=== PATIENT | female | born 1965 | race Two or more races ===

== ENCOUNTER 2024-01-08 10:32 | Emergency (ER) | payer MEDICAID, SELFPAY ==
--- NOTE | ~2024-01-08 | CT_ITS ---
EXAMINATION: CT ABDOMEN AND PELVIS WITHOUT CONTRAST CLINICAL INFORMATION: Right-sided flank pain COMPARISON: None available. TECHNIQUE: Multidetector volumetric imaging was performed from the superior aspect of the liver through the pubic symphysis. Sagittal and coronal reformatted images were obtained on the technologist's workstation. This CT examination was performed using dose optimization techniques as appropriate, variously including the following: *Automated exposure control *Adjustment of mA and/or kV according to patient size (this includes techniques or standardized protocols for targeted exams where dose is matched to indication/reason for exam; i.e. extremities or head) *Use of iterative reconstruction technique DLP: 467 mGy-cm FINDINGS: LUNG BASES: There is mild bronchial thickening and some mild tree-in-bud opacities suggestive of airway disease. No consolidations or effusions or suspicious masses. LIVER, GALLBLADDER, AND BILIARY TREE: The liver is normal in size, shape, and attenuation. No focal hepatic lesion or biliary ductal dilatation is present. The gallbladder is unremarkable with no evidence of radiopaque gallstones, gallbladder wall thickening, or obvious pericholecystic inflammatory changes. PANCREAS: Unremarkable. SPLEEN: Unremarkable. ADRENAL GLANDS: Unremarkable. KIDNEYS AND URETERS: Right: There is right-sided hydronephrosis present with dilatation of ureter down to the level of a 5 mm calculus seen just above the level of the UVJ. Some phleboliths are present in the same area as well. No renal masses are seen. There are at least 5 tiny punctate nonobstructing renal calculi seen on the right none larger than 2 mm in size. No right renal masses. Left: 2 nonobstructing renal calculi are seen the largest measuring 3 mm. This measures about 550 Hounsfield units and is 7.8 cm from the posterior axillary line. No left renal masses are seen. The left ureter is normal. BLADDER: Unremarkable. GASTROINTESTINAL TRACT: The small and large bowel are unremarkable aside from colonic diverticula without diverticulitis. No evidence of appendicitis. ABDOMINAL WALL: No significant hernia is appreciated. LYMPH NODES: No retroperitoneal lymphadenopathy. VASCULAR: Minimal calcific atherosclerotic changes are present in the aorta and iliac vessels. There is no evidence of an abdominal aortic aneurysm. PELVIC VISCERA: Unremarkable. OSSEOUS STRUCTURES: Unremarkable. CT/CT abdomen pelvis wo IV con IMPRESSION: 1. 5 mm distal right ureteral calculus with mild hydronephrosis. 2. Bilateral nonobstructing renal calculi. 3. Incidental note made of mild bronchial thickening and tree-in-bud opacities suggestive of airway disease. Fleischner guidelines were followed.
[2024-01-08 10:48] VITALS: BP 137/84; PULSE 83; RESP 16; TEMP 36.9; O2SAT 98; BMI 24.5
[2024-01-08 11:02] LABS: MANUAL DIFF FLAG NO
[2024-01-08 11:06] LABS: Basophils Percent Auto 0.8 % (0-2); Eosinophils Absolute Auto 0.1 X10*3/uL (0.0-0.4); Eosinophils Percent Auto 2.8 % (0-4); Hematocrit 40.7 % (37.0-47.0); Imm Gran Abs Auto 0.01 X10*3/uL (0.00-0.03); Imm Gran Pct Auto 0.2 % (0.0-0.4); Lymphocytes Absolute Auto 1.2 X10*3/uL (1.2-4.9); Lymphocytes Percent Auto 24.8 % (20-40); Mean Corpuscular HGB Conc 31.9 g/dl (31.0-35.0); Mean Corpuscular Hemoglobin 28.2 pg (27.0-33.0); Mean Corpuscular Volume 88.3 fL (80.0-98.0); Mean Platelet Volume 9.7 fL (9.4-12.3); Monocytes Absolute Auto 0.3 X10*3/uL (0.1-1.2); Neutrophils Percent Auto 64.4 % (45-73); Platelet Count 290 X10*3/uL (160-400); Red Blood Count 4.61 X10*6/uL (4.20-5.50); Red Cell Distribution Width 12.7 % (11.0-16.0); White Blood Count 4.7 X10*3/uL (4.8-10.8)
--- NOTE | 2024-01-08 11:10 | ED.ABDPAIN ---
HPI - Abdominal Pain General Chief Complaint: Abdominal Pain Stated Complaint: R flank pain Time Seen by Provider: 01/08/24 11:02 Source: patient Mode of arrival: ambulatory Limitations: no limitations History of Present Illness ED Provider: YULIANA GAMBOA narrative: 58 yo female with PMH of GERD, renal colic here with c/o 3 days atraumatic R flank pain with nausea, urinary frequency, intermittent constipation. No fevers, no diarrhea. MD elicited complaint: flank pain Pertinent past history: kidney stones Onset (ago): day(s) (3) Pain Consistency: constant Location: R flank Severity: moderate Quality: aching Radiation: none Migration to: no migration Exacerbating factors: nothing Relieving factors: nothing Context: history of similar episodes Associated symptoms: nausea, constipation and dysuria Related Data Previous Rx's ?Medication ?Instructions ?Recorded cefuroxime axetil 500 mg tablet 500 mg PO BID 7 days #14 tabs 01/08/24 morphine 15 mg immediate release 15 mg PO QID PRN pain #12 tabs 01/08/24 tablet ondansetron 4 mg disintegrating 4 mg PO Q8H PRN nausea and 01/08/24 tablet vomiting #20 tabs prednisone 20 mg tablet 40 mg (2 x 20 mg) PO DAILY 5 days 01/08/24 #10 tabs tamsulosin 0.4 mg capsule 0.4 mg PO DAILY 7 days #7 caps 01/08/24 Allergies Allergy/AdvReac Type Severity Reaction Status Date / Time Penicillins [PENICILLINS] Allergy Unknown RASH Verified 01/08/24 11:33 Review of Systems Review of Systems Constitutional : No Weight loss, No Fever, No Chills ENT/Mouth : No sore throat, No Rhinorrhea Eyes: No Swelling, No Redness Cardiovascular : No Chest Pain, No SOB, No Edema Respiratory : No Cough, No Sputum, No Wheezing Gastrointestinal : Positive Nausea, no Vomiting, noDiarrhea, positive abdominal Pain, No Hematochezia, No Melena Genitourinary : No Dysuria, No Urinary Frequency, No Hematuria, No Urgency Musculoskeletal : No joint pain, No Myalgias, No Joint Swelling Skin : No Skin Lesions, No rash Neuro : No Weakness, No Numbness, No Dizziness, No Headache Psych : No Anxiety/Panic, No Depression All other systems reviewed and are negative. [facility] Past Medical History Attestation statement: The following information was validated with the patient. Medical History GERD (gastroesophageal reflux disease) Renal colic Social History Social History (Updated 01/08/24 @ 11:15 by Haley Hernandez DO) Patient Tobacco Use Status: Never used Tobacco Smoked in Last 30 Days: No Use of substances other than those prescribed or required for medical reasons: No Advance Directives: No Advance Directives Information Provided: Yes Physical Exam ED Vital Signs: Vital Signs - 24 hr 01/08/24 10:48 01/08/24 11:34 01/08/24 12:16 Temperature 98.5 F 98.1 F Pulse Rate 83 72 Respiratory Rate 16 20 14 Blood Pressure 137/84 134/74 Pulse Oximetry 98 99 Oxygen Delivery Method Room Air Room Air 01/08/24 13:03 01/08/24 14:25 Temperature 97.9 F Pulse Rate 63 Respiratory Rate 18 14 Blood Pressure 108/60 Pulse Oximetry 96 Oxygen Delivery Method Room Air BMI result Body Mass Index 24.5 Appearance: Alert. Oriented X3. No acute distress. Eyes: Pupils equal, round and reactive to light. ENT: Pharynx normal. Neck: Normal inspection. Neck supple. CVS: Normal heart rate and rhythm. Pulses normal. Respiratory: No respiratory distress. Breath sounds normal. Abdomen: Soft and moderate CVA ttp no rebound Skin: Skin warm and dry. Normal skin color. Normal skin turgor. Extremities: No lower extremity edema. No calf ttp Neuro: Oriented X 3. No motor deficit. No sensory deficit. Medical Decision Making Medical Decision Making [facility] Narrative: 58 yo female with PMH of GERD, renal colic here with c/o R flank pain and nausea at this time will need labs, UA, CT scan for renal colic IV morphine for pain Differential Diagnosis Differential Diagnoses: The differential diagnosis associated with the presentation includes renal colic, IBS constipation Admission/Observation Consideration of admission/observation: Escalation of care including admission/observation considered feels better tolerating PO can trial meds at home with strict precautions has chronic cough likely bronchitis will give steroids and ceftin Lab Data [facility] Lab Attestation statement: I reviewed the patient's lab results. 01/08/24 10:58 01/08/24 10:58 Labs: Lab Results 01/08/24 01/08/24 Range/Units 10:58 12:19 WBC 4.7 L (4.8-10.8) X10*3/uL RBC 4.61 (4.20-5.50) X10*6/uL Hgb 13.0 (12.0-16.0) g/dl Hct 40.7 (37.0-47.0) % MCV 88.3 (80.0-98.0) fL MCH 28.2 (27.0-33.0) pg MCHC 31.9 (31.0-35.0) g/dl RDW 12.7 (11.0-16.0) % Plt Count 290 (160-400) X10*3/uL MPV 9.7 (9.4-12.3) fL Immature Gran % (Auto) 0.2 (0.0-0.4) % Neut % (Auto) 64.4 (45-73) % Lymph % (Auto) 24.8 (20-40) % [place] % (Auto) 7.0 (2-11) % Eos % (Auto) 2.8 (0-4) % Baso % (Auto) 0.8 (0-2) % Lymph # (Auto) 1.2 (1.2-4.9) X10*3/uL [place] # (Auto) 0.3 (0.1-1.2) X10*3/uL Eos # (Auto) 0.1 (0.0-0.4) X10*3/uL Baso # (Auto) 0.0 (0.0-0.2) X10*3/uL Abs Immat Gran (auto) 0.01 (0.00-0.03) X10*3/uL Absolute Neuts (auto) 3.0 (2.0-8.3) x10*3/uL Absolute Nucleated RBC 0.000 (0.0-0.012) X10*3/uL Nucleated RBC % (auto) 0.0 (0.0-0.2) /100WBC Sodium 142 (135-145) mmol/L Potassium 4.2 (3.3-5.1) mmol/L Chloride 106 (96-108) mmol/L Carbon Dioxide 28 (22-29) mmol/L Anion Gap 12 (12-20) BUN 19 H (9-16) mg/dL Creatinine 0.87 (0.5-1.4) mg/dL Estim Creat Clear Calc 61.5 Estimated GFR > 60 Random Glucose 107 (60-115) mg/dL Calcium 9.9 (8.4-10.2) mg/dL Total Bilirubin 0.5 (0.0-1.0) mg/dL Direct Bilirubin 0.1 (0.0-0.5) mg/dL AST 17 (5-31) U/L ALT 12 (0-31) U/L Alkaline Phosphatase 98 (39-117) U/L Total Protein 7.9 (6.5-8.0) g/dL Albumin 4.5 (3.5-5.0) g/dL Lipase 37 (8-78) U/L Urine Color Yellow Urine Appearance Clear Urine pH 7.5 (5.0-9.0) Ur Specific [place] <= 1.005 (1.005-1.025) Urine Protein Negative (Neg-Trace) mg/dL Urine Glucose (UA) Negative (Negative) mg/dL Urine Ketones Negative (Negative) mg/dL Urine Blood Small (1+) H (Negative) Urine Nitrite Negative (Negative) Ur Leukocyte Esterase Moderate (2+) H (Negative) Urine RBC 6-10 H (0-2) /HPF Urine WBC 6-10 H (0-5) /HPF Ur Squamous Epith Cells 0-2 (0-2) /HPF Urine Bacteria None Seen (None Seen) Hyaline Casts 0-2 (0-2) /LPF Independent Interpretation I performed an independent interpretation of an: CT Scan (renal colic, bronchitis) Radiology Impression Discussion of test interpretation with radiology: I have reviewed the radiologist's reading. Prescription Management I considered prescription management with: Pain Medication, Antibiotic and Other Medications Administered Discontinued Medications Generic Name Dose Route Start Last Admin Trade Name Freq PRN Reason Stop Dose Admin Sodium Chloride 1,000 mls @ 999 mls/hr 01/08/24 11:01/08/24 13:36 Ns IV 01/08/24 12:09 Infused .Q1H1M ONE Infusion Morphine Sulfate 4 mg 01/08/24 11:01/08/24 11:34 Morphine Sulfate 4 Mg/Ml Cartridge IVPUSH 01/08/24 11:10 4 mg ONCE ONE Administration Protocol Ondansetron HCl 4 mg 01/08/24 11:09 01/08/24 11:34 Ondansetron Hcl 4 Mg/2 Ml Vial IVPUSH 01/08/24 11:10 4 mg ONCE ONE Administration Critical Care Time Critical Care Time Critical Care Time: Yes Total Critical Care Time: 35 Attestation: pain improved with IV morphine, repeat assessments I attest to this time spent taking care of the patient Discharge Plan Discharge Clinical Impression: Ureterolithiasis, Bronchitis Patient Disposition: Home, Self-Care Instructions: Acute Bronchitis (ED), Ureteral Stones (ED) Additional Instructions: CT scan distal 5mm stone R ureter if you do not feel better call urologist number listed below return for fevers, inability to eat or drink, unable to urinate, severe pain or any other concerns. Prescriptions: New prednisone 20 mg tablet 40 mg PO DAILY 5 Days Qty: 10 0RF tamsulosin 0.4 mg capsule 0.4 mg PO DAILY 7 Days Qty: 7 0RF cefuroxime axetil 500 mg tablet 500 mg PO BID 7 Days Qty: 14 0RF morphine 15 mg tablet 15 mg PO QID PRN (Reason: pain) Qty: 12 0RF Rx Instructions: partial fill okay; Partial Fill upon patient request. ondansetron 4 mg tablet,disintegrating 4 mg PO Q8H PRN (Reason: nausea and vomiting) Qty: 20 0RF Referrals: Edel Stein MD [Physician] - (urology will need to call to schedule appointment) Print Language: Upper Sorbian
[2024-01-08 11:19] LABS: Alanine Aminotransferase 12 U/L (0-31); Albumin Level 4.5 g/dL (3.5-5.0); Alkaline Phosphatase 98 U/L (39-117); Anion Gap 12 (12-20); Aspartate Amino Transferase 17 U/L (5-31); Bilirubin Direct 0.1 mg/dL (0.0-0.5); Bilirubin Total 0.5 mg/dL (0.0-1.0); Blood Urea Nitrogen 19 mg/dL (9-16); Calcium 9.9 mg/dL (8.4-10.2); Carbon Dioxide 28 mmol/L (22-29); Chloride 106 mmol/L (96-108); Creatinine Clr Calc Pharmacy 61.5; Estimated Glomerular Filt Rate > 60; Glucose Random 107 mg/dL (60-115); Potassium 4.2 mmol/L (3.3-5.1); Sodium 142 mmol/L (135-145); Total Protein 7.9 g/dL (6.5-8.0)
[2024-01-08 11:33] LABS: Lipase 37 U/L (8-78)
[2024-01-08 11:34] VITALS: RESP 20
[2024-01-08] MEDS: 0.9 % Sodium Chloride 1,000 ML 999 ML IV (11:34)
[2024-01-08] MEDS: Morphine Sulfate 4 MG/ML CARTRIDGE IVPUSH (11:34)
[2024-01-08] MEDS: ondansetron HCL 4 MG/2 ML VIAL IVPUSH (11:34)
[2024-01-08 12:16] VITALS: BP 134/74; PULSE 72; RESP 14; TEMP 36.7; O2SAT 99
[2024-01-08 12:40] LABS: Appearance Urine Clear; Color Urine Yellow; Glucose Urine UA Negative (Negative); Leukocyte Esterase Urine Moderate (2+) (Negative); Nitrite Urine Negative (Negative); PH 7.5 (5.0-9.0); Specific Gravity - Urine <= 1.005 (1.005-1.025); UMIC TRIGGER UACC YES; Urine Blood Small (1+) (Negative); Urine Ketones Negative (Negative); Urine Protein Negative (Neg-Trace)
[2024-01-08 12:42] LABS: Bacteria Urine None Seen (None Seen); Hyaline Casts Urine 0-2 /LPF (0-2); Squamous Epithelial Cell Urine 0-2 /HPF (0-2); UACC Culture Trigger YES
[2024-01-08 13:03] VITALS: RESP 18
[2024-01-08 14:25] VITALS: BP 108/60; PULSE 63; RESP 14; TEMP 36.6; O2SAT 96
[2024-01-08 15:33] VITALS: BP 108/60; PULSE 63; RESP 16; TEMP 36.8; O2SAT 97
--- NOTE | 2024-01-08 17:24 | PC.NURSE ---
Morphine held on discharge per MD due to pt driving home.
== END 2024-01-08 15:35 | disposition home or self-care (01) ==
PROVIDERS: Emergency Provider Emergency Medicine
DX: J40 Bronchitis, not specified as acute or chronic (principal); N21.1 Calculus in urethra; R10.9 Unspecified abdominal pain; R11.0 Nausea; R35.0 Frequency of micturition; K59.00 Constipation, unspecified
CPT/HCPCS: 36415; 74176; 80048; 80076; 81001; 83690; 85025; 87086; 96361; 96374; 96375; 99284; 99285; J2270; J2405

== ENCOUNTER 2025-01-28 14:03 | Emergency (ER) | payer MEDICAID, SELFPAY ==
--- NOTE | ~2025-01-28 | CT_ITS ---
CLINICAL HISTORY: Left flank pain with history of kidney stone CT abdomen and pelvis without contrast Comparison: 01/08/2024 Findings: Lung bases clear. No acute bony abnormality. Liver and spleen within normal limits. Pancreas and adrenal glands unremarkable. Gallbladder within normal limits. Multiple bilateral nonobstructing renal stones. Bilateral renal cysts are also noted. No ureteral stones or hydronephrosis. No evidence for aortic aneurysm. No free fluid or adenopathy in the pelvis. No diverticulitis. Appendix unremarkable. Uterus normal size. No adnexal abnormality. Impression: No acute processes This document has been electronically signed by: Steven Helton MD on 01/28/2025 22:14:23
--- NOTE | 2025-01-28 14:06 | ED.GENADULT ---
HPI - General Adult General Chief complaint: Abdominal Pain Stated complaint: Abd/ Back/ Pelvic Pain Time Seen by Provider: 01/28/25 17:27 Source: patient Mode of arrival: ambulatory Limitations: no limitations History of Present Illness ED Provider: HPI narrative: Patient's history of kidney stone in the past comes here for 1 week of sudden onset of sharp pain in the left flank area radiating to the left lower abdomen off and on no hematuria no urinary symptoms no fever no chills no shortness a breath no cough Related Data Previous Rx's ?Medication ?Instructions ?Recorded cefuroxime axetil 500 mg tablet 500 mg PO BID 7 days #14 tabs 01/08/24 morphine 15 mg immediate release 15 mg PO QID PRN pain #12 tabs 01/08/24 tablet ondansetron 4 mg disintegrating 4 mg PO Q8H PRN nausea and 01/08/24 tablet vomiting #20 tabs prednisone 20 mg tablet 40 mg (2 x 20 mg) PO DAILY 5 days 01/08/24 #10 tabs tamsulosin 0.4 mg capsule 0.4 mg PO DAILY 7 days #7 caps 01/08/24 tramadol 50 mg tablet 50 mg PO Q6H PRN pain #20 tabs 01/28/25 Allergies Allergy/AdvReac Type Severity Reaction Status Date / Time Penicillins (PENICILLINS) Allergy Unknown RASH Verified 01/28/25 14:08 Review of Systems Review of Systems: Yes all other systems are reviewed and are negative [facility] Past Medical History Medical History GERD (gastroesophageal reflux disease) Renal colic Social History Social History (Updated 01/08/24 @ 11:15 by Haley Hernandez DO) Patient Tobacco Use Status: Never used Tobacco Physical Exam ED Vital Signs: Vital Signs - 24 hr 01/28/25 14:07 01/28/25 17:12 01/28/25 20:11 Temperature 98.0 F 97.4 F 97.3 F Pulse Rate 72 55 72 Respiratory Rate 16 16 16 Blood Pressure 119/84 123/71 136/75 Pulse Oximetry 99 98 98 Oxygen Delivery Method Room Air Room Air Room Air 01/28/25 22:00 01/28/25 23:15 Temperature 97.2 F 97.2 F Pulse Rate 72 72 Respiratory Rate 16 16 Blood Pressure 144/71 H 144/71 H Pulse Oximetry 96 96 Oxygen Delivery Method Room Air Room Air BMI result Body Mass Index 23.8 Course Course Course Narrative: This is a rapid medical exam performed by Charla Maria NP: Additional HPI, ROS, PE not included below will be deferred to primary provider. Patient is a 59-year-old female with history of renal colic presenting to the ED with complaint of left sided abd pain radiating to back and down leg with associated nausea. Plan: labs, UA Medications Administered Discontinued Medications Generic Name Dose Route Start Last Admin Trade Name Freq PRN Reason Stop Dose Admin Morphine Sulfate 15 mg 01/28/25 17:47 01/28/25 18:18 Morphine Sulfate Immed Release 15 Mg Tablet PO 01/28/25 17:48 15 mg ONCE ONE Administration Ondansetron HCl 4 mg 01/28/25 17:47 01/28/25 18:18 Ondansetron Odt 4 Mg Tab.Rapdis TRANSLINGU 01/28/25 17:48 4 mg ONCE ONE Administration Medical Decision Making Medical Decision Making [facility] Narrative: Patient with left flank pain for last 1 week with a history of kidney stone workup showed negative urine for UTI or hematuria CT scan of the abdomen was done which was also negative for any kidney stone in ureter no hydronephrosis patient does have kidney stones in bilateral kidneys possible patient has had passed the kidney stone as cause of the pain Differential Diagnosis Differential Diagnoses: The differential diagnosis associated with the presentation includes Admission/Observation Consideration of admission/observation: Escalation of care including admission/observation considered Lab Data [facility] Lab Attestation statement: I reviewed the patient's lab results. 01/28/25 14:57 01/28/25 14:57 Labs: Lab Results 01/28/25 Range/Units 14:57 WBC 5.7 (4.8-10.8) X10*3/uL RBC 4.20 (4.20-5.50) X10*6/uL Hgb 11.7 L (12.0-16.0) g/dl Hct 36.7 L (37.0-47.0) % MCV 87.4 (80.0-98.0) fL MCH 27.9 (27.0-33.0) pg MCHC 31.9 (31.0-35.0) g/dl RDW 12.9 (11.0-16.0) % Plt Count 260 (160-400) X10*3/uL MPV 10.4 (9.4-12.3) fL Immature Gran % (Auto) 0.3 (0.0-0.4) % Neut % (Auto) 61.7 (45-73) % Lymph % (Auto) 29.3 (20-40) % [place] % (Auto) 6.8 (2-11) % Eos % (Auto) 1.4 (0-4) % Baso % (Auto) 0.5 (0-2) % Lymph # (Auto) 1.7 (1.2-4.9) X10*3/uL [place] # (Auto) 0.4 (0.1-1.2) X10*3/uL Eos # (Auto) 0.1 (0.0-0.4) X10*3/uL Baso # (Auto) 0.0 (0.0-0.2) X10*3/uL Abs Immat Gran (auto) 0.02 (0.00-0.03) X10*3/uL Absolute Neuts (auto) 3.5 (2.0-8.3) x10*3/uL Absolute Nucleated RBC 0.000 (0.0-0.012) X10*3/uL Nucleated RBC % (auto) 0.0 (0.0-0.2) /100WBC Sodium 141 (135-145) mmol/L Potassium 4.2 (3.3-5.1) mmol/L Chloride 106 (96-108) mmol/L Carbon Dioxide 29 (22-29) mmol/L Anion Gap 10 L (12-20) BUN 17 H (9-16) mg/dL Creatinine 0.80 (0.5-1.4) mg/dL Estim Creat Clear Calc 66.1 Estimated GFR > 60 Random Glucose 87 (60-115) mg/dL Calcium 9.1 D (8.4-10.2) mg/dL Total Bilirubin 0.5 (0.0-1.0) mg/dL AST 23 (5-31) U/L ALT 21 (0-31) U/L Alkaline Phosphatase 85 (39-117) U/L Total Protein 6.9 (6.5-8.0) g/dL Albumin 4.3 (3.5-5.0) g/dL Urine Color Yellow Urine Appearance Clear Urine pH 6.5 (5.0-9.0) Ur Specific [place] <= 1.005 (1.005-1.025) Urine Protein Negative (Neg-Trace) mg/dL Urine Glucose (UA) Negative (Negative) mg/dL Urine Ketones Negative (Negative) mg/dL Urine Blood Trace H (Negative) Urine Nitrite Negative (Negative) Ur Leukocyte Esterase Negative (Negative) Urine RBC 0-2 (0-2) /HPF Urine WBC 0-5 (0-5) /HPF Ur Squamous Epith Cells 0-2 (0-2) /HPF Urine Bacteria None Seen (None Seen) Hyaline Casts 0-2 (0-2) /LPF Independent Interpretation I performed an independent interpretation of an: CT Scan Radiology Impression Discussion of test interpretation with radiology: I have reviewed the radiologist's reading. Discharge Plan Discharge Clinical Impression: Renal colic on left side Patient Disposition: Home, Self-Care Instructions: Renal Colic (ED) Additional Instructions: You have small stones in the kidney but no stones were seen in the kidney tubes Likely you have passed the stone Take pain medication as prescribed Follow up with urologist Prescriptions: New tramadol 50 mg tablet 50 mg PO Q6H PRN (Reason: pain) Qty: 20 0RF No Action prednisone 20 mg tablet 40 mg PO DAILY 5 Days Qty: 10 0RF tamsulosin 0.4 mg capsule 0.4 mg PO DAILY 7 Days Qty: 7 0RF cefuroxime axetil 500 mg tablet 500 mg PO BID 7 Days Qty: 14 0RF morphine 15 mg tablet 15 mg PO QID PRN (Reason: pain) Qty: 12 0RF Rx Instructions: partial fill okay; Partial Fill upon patient request. ondansetron 4 mg tablet,disintegrating 4 mg PO Q8H PRN (Reason: nausea and vomiting) Qty: 20 0RF Referrals: Sammy Reynoso MD [Physician, Urology] Referral Note: 1 week Interventions: ED Discharge Assessment Last Done: 01/28/25 23:15 Discharge Date/Time: 01/28/25 23:20 Print Language: Irish
[2025-01-28 14:07] VITALS: BP 119/84; PULSE 72; RESP 16; TEMP 36.7; O2SAT 99; BMI 23.8
[2025-01-28 15:07] LABS: MANUAL DIFF FLAG NO
[2025-01-28 15:10] LABS: Appearance Urine Clear; Glucose Urine UA Negative (Negative); Hematocrit 36.7 % (37.0-47.0); Hemoglobin 11.7 g/dl (12.0-16.0); Imm Gran Abs Auto 0.02 X10*3/uL (0.00-0.03); Imm Gran Pct Auto 0.3 % (0.0-0.4); Lymphocytes Absolute Auto 1.7 X10*3/uL (1.2-4.9); Mean Corpuscular HGB Conc 31.9 g/dl (31.0-35.0); Mean Corpuscular Hemoglobin 27.9 pg (27.0-33.0); Mean Corpuscular Volume 87.4 fL (80.0-98.0); NRBC Abs Auto 0.000 X10*3/uL (0.0-0.012); NRBC Pct Auto 0.0 /100WBC (0.0-0.2); PH 6.5 (5.0-9.0); Platelet Count 260 X10*3/uL (160-400); Red Blood Count 4.20 X10*6/uL (4.20-5.50); Specific Gravity - Urine <= 1.005 (1.005-1.025); UMIC TRIGGER UACC YES; White Blood Count 5.7 X10*3/uL (4.8-10.8)
[2025-01-28 15:27] LABS: Alanine Aminotransferase 21 U/L (0-31); Albumin Level 4.3 g/dL (3.5-5.0); Alkaline Phosphatase 85 U/L (39-117); Anion Gap 10 (12-20); Aspartate Amino Transferase 23 U/L (5-31); Blood Urea Nitrogen 17 mg/dL (9-16); Calcium 9.1 mg/dL (8.4-10.2); Carbon Dioxide 29 mmol/L (22-29); Chloride 106 mmol/L (96-108); Creatinine Clr Calc Pharmacy 66.1; Estimated Glomerular Filt Rate > 60; Potassium 4.2 mmol/L (3.3-5.1); Sodium 141 mmol/L (135-145); Total Protein 6.9 g/dL (6.5-8.0)
[2025-01-28 17:12] VITALS: BP 123/71; PULSE 55; RESP 16; TEMP 36.3; O2SAT 98
--- OUTSIDE RECORDS SUMMARY | 2025-01-28 17:35 | XMS_ITS | Clinical Summary ---
Author Organization [facility] Address [address] [place] [address] Care Team Providers Care Dietetic Technician Name Role Phone Van Wright Primary Care Provider [phone] Source Comments PLEASE NOTE, if this patient is a minor, it may be UNLAWFUL to discuss sensitive information that is contained in these records (such as FAMILY PLANNING, MENTAL HEALTH or SUBSTANCE ABUSE) with the minor patient's parent or other person without the patient's specific authorization.[facility] Allergies Active Allergy Reactions Criticality Noted Date Comments Penicillins Rash High 09/15/2015 Medications [id number] carb-vit K (WOMEN'S MULTIVITAMIN) 18 mg iron-400 mcg-500 mg tabIndications:Ro utine adult health maintenance Take 1 Tab by mouth once daily 30 Tab 3 11/28/19 18 Active ibuprofen (ADVIL,MOTRIN) 600 mg tablet Take 600 mg by mouth every 8 (eight) hours 0 05/06/20 18 Active dicyclomine (BENTYL) 20 mg tablet TAKE 1 TABLET BY MOUTH EVERY 8 HOURS NEEDED FOR ABDOMINAL DISCOMFORT 0 08/17/19 19 Active sennosides-docusa te sodium (SENNA WITH DOCUSATE SODIUM) 8.6-50 mg per tabletIndications :Drug-induced constipation Take 1 Tab by mouth once daily as needed for constipation 30 Tab 10/09/19 19 Active codeine-guaifenes in (TUSSI-ORGANIDIN NR) 10-100 mg/5 mL syrupIndications: Bronchitis Take 5 mL by mouth 3 (three) times daily as needed for cough 236 mL 10/25/19 19 Active clotrimazole-beta methasone (LOTRISONE) 1-0.05 % creamIndications: Vaginal pruritus Apply topically 2 (two) times daily 15 g 04/23/20 19 Active aluminum hydrox-magnesium carb (GAVISCON) 160-105 mg per chewable tabletIndications :gastroesophageal reflux disease Take 1 Tab by mouth nightly at bedtime Indications: gastroesophageal reflux disease 30 Tab 08/19/19 20 Active omeprazole (PRILOSEC) [address] capsuleIndication s:Gastroesophagea l reflux disease without esophagitis TAKE 1 CAPSULE BY MOUTH EVERY DAY IN THE MORNING BEFORE BREAKFAST 30 Capsule 07/04/20 22 Active lidocaine (LIDODERM) 5 % patchIndications: Chronic bilateral low back pain without sciatica Place 1 Patch onto the skin daily. Apply 1 patch to the affected area for a maximum of 12 hours, followed by removal for 12 hours. 30 Patch 2 12/06/19 23 Active amLODIPine (NORVASC) 5 mg tabletIndications :Benign hypertension TAKE 2 TABLETS BY MOUTH EVERY DAY 180 Tablet 1 08/06/19 25 Active ondansetron ODT (ZOFRAN-ODT) 4 mg disintegrating tablet DISSOLVE 1 TABLET ON THE TONGUE EVERY 8 HOURS NEEDED FOR NAUSEA OR VOMITING 01/08/20 24 Active tamsulosin (FLOMAX) 0.4 mg 24 hr capsule Take 0.4 mg by mouth once daily. 01/08/20 24 Active gabapentin (NEURONTIN) 600 mg tabletIndications :restless leg syndrome Take 1 Tablet by mouth 3 (three) times daily Indications: restless legs syndrome, an extreme discomfort in the calf muscles when sitting or lying down. 90 Tablet 1 12/18/19 25 Active polyethylene glycol, PEG, 3350 (MIRALAX) 17 gram packetIndications :Constipation, unspecified constipation type Take 17 g by mouth once daily. 28 Each 2 12/18/19 25 Active blood pressure test kit-largeIndicati ons:Benign hypertension Goal BP <130/90. Check once daily.. 1 Kit 12/18/19 25 Active Active Problems Problem Noted Date Diagnosed Date Chest pain 12/17/2024 Vaginal pruritus 04/23/2019 Hepatitis C antibody positive in blood 9 Benign hypertension 09/15/2015 Encounters Date Type Department Care Team Description 12/17/2024 10:40 AM EDT Office Visit [facility] [id number] [place] [address] Van Wright PA Lopez, Iris from Last 3 Months Immunizations Immunization Administration Dates Next Due Flu, Preservative Free 04/20/2020,05/24/2016 Moderna COVID-19 Vaccine, re d cap blue label, 12+ Primary Series 10/27/2021,01/04/2021,12/07/2020 TDAP 02/10/2017,05/24/2016 ZOSTER VACCINE, RECOMBINANT (SHINGRIX) Family History Medical History Relation Name Comments Diabetes Brother Diabetes Father Hypertension Father Relation Name Status Comments Brother Alive Father Alive Mother Alive Sister Alive Social History Tobacco Use Types Packs/Day Years Used Date Smoking Tobacco: Former Smokeless Tobacco: Never Tobacco Cessation:Counseling Given: Not Answered Alcohol Use Standard Drinks/Week Comments No 0 (1 standard drink = 0.6 oz pur e alcohol) Social Connections Answer Date Recorded Connectedness 1 12/13/2023 Financial Resource Strain Answer Date R ecorded Financial Resource Strain 1 2023 Stress Answer Date Recorded Stress 1 12/13/2023 Physical Activity Answer Date Recorded Physical Activity 0 08/20/2019 Food Insecurity Answer Date Recorded Food 1 12/13/2023 Transportation Needs Answer Date Record ed Transportation 1 12/13/2023 Housing Stability Answer Date Recorded Housing 1 12/13/2023 Safety and Environment Answer Date Raulito rded Safety 1 12/13/2023 Utilities Answer Date Recorded Utilities 1 12/13/2023 Employment Answer Date Recorded Stress 0 08/20/2019 Comments No Sex and Gender Information Value Date Recorded Sex Assigned at Female 11/27/2017 7:59 AM PDT Legal Sex Female 11:12 AM PDT Gender Identity Female 11/27/2017 7:59 AM PDT Sexual Orientation Straight 11/27/2017 7: 59 AM PDT Last Filed Vital Signs Vital Sign Reading Time Taken Comments Blood Pressure 124/79 12/17/2024 10:35 AM EDT Pulse 72 12/17/2024 10:35 AM EDT Temperature 36.8 C (98.2 F) 12/17/2024 10:35 AM EDT Respiratory Rate 18 12/17/2024 10:35 AM EDT Oxygen Saturation 97% 12/17/2024 10:35 AM EDT Inhaled Oxygen Concentration - - Weight 64.9 kg (143 lb) 12/17/2024 10:35 AM EDT Height 162.6 cm (5' 4 ) 12/17/2024 10:35 AM EDT Body Mass Index 24.55 12/17/2024 10:35 AM EDT Plan of Treatment Health Maintenance Due Date Last Done Comments HPV Screening 1966 Imm-Hepatitis B (1 of 3 - 19+ 3-dose series) 1985 CT Colonography 2011 Colonoscopy 2011 Colorectal Cancer Screening 2011 FIT/gFOBT 2011 Fecal DNA 2011 Flexible Sigmoidoscopy 2011 Imm-Pneumococcal 50+ (1 of 1 - PCV) 02/10/2016 Pap Smear 04/25/2022 04/25/2019, 04/23/2019 Breast Cancer Screening (Mammogram) 10/12/2023 10/11/2021 [id number] ( season) 2024 10/27/2021, 01/04/2021, 12/07/2020 Cervical Cancer Screening 04/25/2024 Pap + HPV 04/25/2024 04/25/2019 Imm-Zoster, Recombinant (2 of 2) 02/11/2025 12/17/2024 Imm-Influenza (#1) 2025 04/20/2020, 05/24/2016 Lipid Screening 12/06/2025 12/06/2022, 03/0 07/2021, 04/22/2020, Additional history exists Annual Wellness (Adult): Indicated (All Coverage) 12/17/2025 12/17/2024, 12/13/2023, 12/05/2022, Additional history exists Anxiety Screening 12/17/2025 12/17/2024 Tobacco Screening 12/17/2025 12/17/2024 Imm-DTaP/Tdap/Td (3 - Td or Tdap) 02/10/2027 02/10/2017, 05/24/2016 Diabetes Screening 12/18/2027 12/17/2024, 0 12/17/2024, 12/06/2022, Additional history exists HIV Screening Completed 10/24/2018, 05/24/2016 Hepatitis C Screening Completed 04/22/2020 , 11/07/2018, 10/24/2018 Alcohol and Drug Screen Addressed 12/18/19 25, 12/13/2023, 12/13/2023, Additional history exists Overridden with the intention of not completing the topic Depression Annual Screen Completed 025, 12/13/2023, 04/20/2020, Additional history exists Cervical Ablation/Cold-Knife Conization Discontinued Cervical Cryotherapy Discontinued Colposcopy Discontinued Endometrial Biopsy Discontinued Excision/Leep Discontinued HPV Genotyping Discontinued Vaginal Pap Discontinued Vulvoscopy Discontinued Goals Goal Patient Goal Type Associated Problems Recent Progress Patient-Stated? Author Blood Pressure < 140/90 Blood Pressure Benign hypertension 124/79(2024 10:35 AM EDT) No Cynthia Almaraz, TiffanyD Procedures Procedure Name Priority Date/Time Associated Diagnosis Comments US PELVIC COMPLETE & TRANSVAG Routine 12/19/2024 3:00 AM EDT Postmenopausal bleeding OTHER ORDERS SCANNED DOCUMENT 12/18/2024 3:00 AM EDT HGBA1C W/MPG Routine 12/17/2024 11:36 AM EDT Encounter for screening mammogram for malignant neoplasm of breast Constipation, unspecified constipation type Benign hypertension Postmenopausal bleeding Encounter for colorectal cancer screening Routine adult health maintenance Encounter for screening for malignant neoplasm of breast, unspecified screening modality Need for vaccination Restless leg syndrome COMPREHENSIVE METABOLIC PANEL Routine 12/17/2024 11:36 AM EDT Encounter for screening mammogram for malignant neoplasm of breast Constipation, unspecified constipation type Benign hypertension Postmenopausal bleeding Encounter for colorectal cancer screening Routine adult health maintenance Encounter for screening for malignant neoplasm of breast, unspecified screening modality Need for vaccination Restless leg syndrome BLOOD COUNT COMPLETE AUTOMATED Routine 12/17/2024 11:36 AM EDT Encounter for screening mammogram for malignant neoplasm of breast Constipation, unspecified constipation type Benign hypertension Postmenopausal bleeding Encounter for colorectal cancer screening Routine adult health maintenance Encounter for screening for malignant neoplasm of breast, unspecified screening modality Need for vaccination Restless leg syndrome LIPIDS W RFLX TO DIRECT LDL Routine 12/06/2022 11:52 AM EDT Routine adult health maintenance Gastroesophageal reflux disease, unspecified whether esophagitis present Hypothyroidism, unspecified type REFERRAL FOR MAMMOGRAM Routine 10/11/2021 3:00 AM EDT Routine adult health maintenance HEPATITIS A,B,C PANEL Routine 04/22/2020 2:25 PM EDT Routine adult health maintenance PAP SMEAR W/HPV, ABSTRACTED Routine 04/25/2019 ANTIBODY HIV-1&HIV-2 SINGLE RESULT Routine 10/24/2018 2:39 PM EDT Exposure to sexually transmitted disease (STD) from Last 3 Months or Most Recently Relevant to Health Maintenance Results * US PELVIC COMPLETE & TRANSVAG (12/19/2024 3:00 AM EDT) Anatomical Region Laterality Modality Other 12/19/2024 3:00 AM EDT Impressions 12/20/2024 6:25 AM EDT IMPRESSION: Heterogeneous uterus. Myometrial cyst. Small amount of fluid within the endometrial canal. Oliva Cain MD Signed by Oliva Cain MD Read by: OLIVA CAIN MD Reviewed and Electronically Signed by: OLIVA Cisneros 12/20/2024 6:25 AM EDT Original Report PROCEDURE: US PELVIS COMPLETE AND TRANSVAGINAL INDICATION: Postmenopausal bleeding. Left lower quadrant pain. HISTORY: A3. Frequent urination. Dysuria. TECHNIQUE: Transabdominal and transvaginal ultrasonography of the pelvis was performed without Doppler evaluation of the ovaries. COMPARISON: None available. FINDINGS: The uterus is anteverted in position and measures 6.6 x 3.0 x 4.7 cm. The uterus demonstrates a heterogeneous echotexture. There are no discrete fibroids present. A myometrial cyst is noted measuring 0.4 x 0.3 x 0.4 cm. Tiny calcifications are visualized within the cervix. The endometrium measures 0.3 cm. There is a small amount of fluid within the endometrial canal. The right ovary measures 1.7 x 1.1 x 1.4 cm. The right ovary demonstrates a normal echotexture. The left ovary measures 1.8 x 1.0 x 1.4 cm. The left ovary demonstrates a normal echotexture. No significant fluid is present within the cul-de-sac. Procedure Note Default, [facility] Provider - 12/20/2024 Original Report PROCEDURE: US PELVIS COMPLETE AND TRANSVAGINAL INDICATION: Postmenopausal bleeding. Left lower quadrant pain. HISTORY: A3. Frequent urination. Dysuria. TECHNIQUE: Transabdominal and transvaginal ultrasonography of the pelvis was performed without Doppler evaluation of the ovaries. COMPARISON: None available. FINDINGS: The uterus is anteverted in position and measures 6.6 x 3.0 x 4.7 cm. The uterus demonstrates a heterogeneous echotexture. There are no discrete fibroids present. A myometrial cyst is noted measuring 0.4 x 0.3 x 0.4 cm. Tiny calcifications are visualized within the cervix. The endometrium measures 0.3 cm. There is a small amount of fluid within the endometrial canal. The right ovary measures 1.7 x 1.1 x 1.4 cm. The right ovary demonstrates a normal echotexture. The left ovary measures 1.8 x 1.0 x 1.4 cm. The left ovary demonstrates a normal echotexture. No significant fluid is present within the cul-de-sac. IMPRESSION: IMPRESSION: Heterogeneous uterus. Myometrial cyst. Small amount of fluid within the endometrial canal. Oliva Cain MD Signed by Oliva Cain MD Read by: OLIVA CAIN MD Reviewed and Electronically Signed by: OLIVA CAIN MD us [facility] ULTRASOUND PELVIC NON-OB E dited Result - Final * OTHER ORDERS SCANNED DOCUMENT (12/18/2024 3:00 AM EDT) 12/18/2024 3:00 AM EDT us [facility] SCAN OTHER ORDERS Final Result * HGBA1C W/MPG Routine (12/17/2024 11:36 AM EDT) Pathologist [facility] HEMOGLOBIN A1C 5.4 <5.7 % [employer] Comment: For the purpose of screening for the presence of diabetes: <5.7% Consistent with the absence of diabetes 5.7-6.4% Consistent with increased risk for diabetes (prediabetes) > or =6.5% Consistent with diabetes This assay result is consistent with a decreased risk of diabetes. Currently, no consensus exists regarding use of hemoglobin A1c for diagnosis of diabetes in children. According to [place] Diabetes Association (ADA) guidelines, hemoglobin A1c <7.0% represents optimal control in non- diabetic patients. Different metrics may apply to specific patient populations. Standards of Medical Care in Diabetes(ADA). MEAN PLASMA GLUCOSE 115 mg/dL (calc) [employer] Blood Blood / Unknown 12/17/2024 1 1:36 AM EDT 12/17/2024 11:38 AM EDT [facility] - BLOOD DRAW Edited Result - Final [employer] [address] [place] [id number], [employer] [address] [place] [phone] * (ABNORMAL) BLOOD COUNT COMPLETE AUTOMATED Routine (12/17/2024 11:36 AM EDT) [facility] WHITE BLOOD CELL COUNT 5.3 3.8 - 10.8 Thousand/ uL [employer] RED BLOOD CELL COUNT 4.29 3.80 - 5.10 Million/u L [employer] HEMOGLOBIN 12.0 11.7 - 15.5 g/dL [employer] HEMATOCRIT 39.0 35.0 - 45.0 % [employer] MCV 90.9 80.0 - 100.0 fL [employer] MCH 28.0 27.0 - 33.0 pg [employer] MCHC 30.8(L) 32.0 - 36.0 g/dL [employer] Comment: For adults, a slight decrease in the calculated MCHC value (in the range of 30 to 32 g/dL) is most likely not clinically significant; however, it should be interpreted with caution in correlation with other red cell parameters and the patient's clinical condition. RDW 12.7 11.0 - 15.0 % [employer] [facility] PLATELET COUNT 294 140 - 400 Thousand/ uL [facility] MPV 10.6 7.5 - 12.5 fL [employer] [facility] Blood Blood / Unknown 12/17/2024 1 1:36 AM EDT 12/17/2024 11:38 AM EDT [facility] - BLOOD DRAW Edited Result - Final [facility] [address] [address], [facility] [address] [place] [address] * COMPREHENSIVE METABOLIC PANEL Routine (12/17/2024 11:36 AM EDT) GLUCOSE 84 65 - 99 mg/dL [facility] Comment: Fasting reference interval UREA NITROGEN (BUN) 16 7 - 25 mg/dL [facility] CREATININE (blood) 0.75 0.50 - 1.03 mg/dL [facility] EGFR 92 > OR = 60 mL/min/1. 73m2 [facility] BUN/CREATININE RATIO SEE NOTE: [facility] Comment: Not Reported: BUN and Creatinine are within reference range. SODIUM 138 135 - 146 mmol/L [facility] POTASSIUM 4.4 3.5 - 5.3 mmol/L [facility] CHLORIDE 103 98 - 110 mmol/L [facility] CARBON DIOXIDE 28 20 - 32 mmol/L [facility] CALCIUM 9.4 8.6 - 10.4 mg/dL [facility] PROTEIN, TOTAL 7.0 6.1 - 8.1 g/dL [facility] ALBUMIN 4.3 3.6 - 5.1 g/dL [facility] GLOBULIN 2.7 1.9 - 3.7 g/dL (calc) [facility] ALBUMIN/GLOBULI N RATIO 1.6 1.0 - 2.5 (calc) [facility] BILIRUBIN, TOTAL 0.5 0.2 - 1.2 mg/dL [facility] ALKALINE PHOSPHATASE 77 37 - 153 U/L [facility] AST 18 10 - 35 U/L [facility] ALT 12 6 - 29 U/L [facility] Blood Blood / Unknown 12/17/2024 1 1:36 AM EDT 12/17/2024 11:38 AM EDT [facility] - BLOOD DRAW Final Result Performing Organization Address [facility]/ZIP Co de Phone Number [facility] [address] [address], [facility] [address] [address] * (ABNORMAL) LIPIDS W RFLX TO DIRECT LDL (12/06/2022 11:52 AM EDT) [facility] Signature CHOLESTEROL, TOTAL 190 <200 mg/dL [facility] HDL CHOLESTEROL 48(L) > OR = 50 mg/dL [facility] TRIGLYCERIDES 157(H) <150 mg/dL [facility] LDL-CHOLESTEROL 115(H) 99 mg/dL (calc) [facility] Comment: Reference range: <100 Desirable range <100 mg/dL for primary prevention; <70 mg/dL for patients with CHD or diabetic patients with > or = 2 CHD risk factors. LDL-C is now calculated using the Loco-Deandre calculation, which is a validated novel method providing better accuracy than the Friedewald equation in the estimation of LDL-C. Loco SS et al. SHANTELL. 2013;310(19): 1948-5163 (http://education.[employer]ck [employer].co/faq/LJG208) CHOL/HDLC RATIO 4.0 <5.0 (calc) [facility] NON-HDL CHOLESTEROL 142(H) <130 mg/dL (calc) [facility] Comment: For patients with diabetes plus 1 major ASCVD risk factor, treating to a non-HDL-C goal of <100 mg/dL (LDL-C of <70 mg/dL) is considered a therapeutic option. Blood Blood / Unknown 12/06/2022 1 1:52 AM EDT 12/06/2022 11:52 AM EDT us [facility] - BLOOD DRAW Final Result [facility] [address] [address], [facility] [address] [place] [address] * REFERRAL FOR MAMMOGRAM SCREENING (10/11/2021 3:00 AM EDT) 10/11/2021 3:00 AM EDT us [facility] RFL MAMMO Edited Result - Final * (ABNORMAL) HEPATITIS A,B,C PANEL (04/22/2020 2:25 PM EDT) HEPATITIS B SURFACE ANTIBODY NEGATIVE NEGATIVE [facility] HEPATITIS B SURFACE ANTIGEN NEGATIVE NEGATIVE [facility] Comment: Over the counter supplements containing high doses of biotin may interfere with this assay. If interference is suspected, patients shoud be retested after refraining from biotin supplements for 72 hours. HEPATITIS C VIRUS DIAGNOSTIC POSITIVE(A) NEGATIVE [facility] Comment: If confirmation of this positive HCV Ab screening test is needed, please redraw and order HCV Viral Load. Note--> This test may not be added on due to different specimen requirements. HEPATITIS B CORE ANTIBODY NEGATIVE NEGATIVE [facility] HEPATITIS A ANTIBODY TOTAL NEGATIVE NEGATIVE [facility] Comment: Over the counter supplements containing high doses of biotin may interfere with this assay. If interference is suspected, patients shoud be retested after refraining from biotin supplements for 72 hours. Blood Blood / Unknown 04/22/2020 2 :25 PM EDT 04/22/2020 2:25 PM EDT Narrative [facility] - 04/22/2020 8:05 PM EDT [employer], a member of [address] [address] Assembly Supervisor - Geovanna Castro MD [place] ID [id number] ORD# [id number] us [facility] - BLOOD DRAW Edited Result - Final [facility] [employer] [address], * PAP SMEAR W/HPV (04/25/2019) Provider [facility] - PATHOLOGY AND CYTOLOGY AMB ULATORY Final Result Performing Organization Address [facility]/ZIP Co de Phone Number [facility] [address] [place] [address], * HIV-1 & HIV-2 ANTIBODIES (10/24/2018 2:39 PM EDT) HIV 1 AND 2 ANTIBODY SCREEN NEGATIVE NEGATIVE [facility] Comment: This assay is a 4th generation assay allowing for earlier detection of HIV infection by detecting the presence of the HIV-1 p24 antigen as well as the traditional antibodies to HIV type 1 (including group O) and type 2. Use of a 4th generation assay is the current CDC recommendation for HIV screening. Blood specimen (specimen) Blood / Unknown 10/24/2018 2:39 PM EDT 10/24/2018 2:42 PM EDT Narrative [facility] - 10/24/2018 8:49 PM EDT [employer], a member of [facility] [address] [place] [address] Assembly Supervisor - Marlyn Jasmine MD [place] ID [id number] ORD# [id number] [facility] - BLOOD DRAW Edited Result - Final Performing Organization Address [facility] Co de Phone Number [facility] [address] [place] [address], from Last 3 Months or Most Recently Relevant to Health Maintenance Insurance [employer] DENTAL MEDICAID DENTAL [address] [employer] Care Teams Dietetic Technician Relationship Specialty Start Date End Date Van Wright PA [address] [place] [address] PCP - General Internal Medicine 05/24/16
[2025-01-28] MEDS: Morphine Sulfate Immed Release 15 MG TABLET PO (18:18)
[2025-01-28 20:11] VITALS: BP 136/75; PULSE 72; RESP 16; TEMP 36.3; O2SAT 98
[2025-01-28 22:00] VITALS: BP 144/71; PULSE 72; RESP 16; TEMP 36.2; O2SAT 96
[2025-01-28 23:15] VITALS: BP 144/71; PULSE 72; RESP 16; TEMP 36.2; O2SAT 96
== END 2025-01-28 23:20 | disposition home or self-care (01) ==
PROVIDERS: Registered Nurse Emergency; Emergency Provider Internal Medicine
DX: N23 Unspecified renal colic (principal); M54.50 Low back pain, unspecified; Z87.442 Personal history of urinary calculi
CPT/HCPCS: 36415; 74176; 80053; 81001; 85025; 99284

== ENCOUNTER → 2025-01-28 20:30 | Outpatient (BNV) | payer MEDICAID, SELFPAY | PROVIDERS: Emergency Provider Internal Medicine; Visit Provider Radiology Diagnostic Radiology | DX: R10.32 Left lower quadrant pain (principal) | CPT/HCPCS: 74176 ==